=== PATIENT | female | born 2000 | race Caucasian/White ===

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

== ENCOUNTER 2021-05-06 05:52 | Emergency (ER) | payer OTHER ==
[2021-05-06 06:04] VITALS: BP 110/70; PULSE 80; TEMP 98.5; BMI 22.3
[2021-05-06] MEDS ORDERED: PROMETHAZINE HCL 25 MG/1 ML VIAL ONE (06:12)
[2021-05-06] MEDS ORDERED: SODIUM CHLORIDE 1,000 ML IV STA (06:12)
[2021-05-06] MEDS ORDERED: PROMETHAZINE HCL 25 MG/1 ML VIAL IVPB ONE (06:14)
== END 2021-05-06 08:40 | disposition home or self-care (01) ==
LOC: FER 05:52
PROC: 3E033NZ Introduction of Analgesics, Hypnotics, Sedatives into Peripheral Vein, Percutaneous Approach (ICD-10-PCS; principal; 2021-05-06)
PROC: 3E0337Z Introduction of Electrolytic and Water Balance Substance into Peripheral Vein, Percutaneous Approach (ICD-10-PCS; 2021-05-06)
DX: R11.10 Vomiting, unspecified (principal)
CPT/HCPCS: 99284-25

== ENCOUNTER 2021-07-03 21:16 | Emergency (ER) | payer OTHER ==
[2021-07-03] MEDS ORDERED: SODIUM CHLORIDE 1,000 ML IV STA (21:22)
[2021-07-03] MEDS ORDERED: PROMETHAZINE HCL 25 MG/1 ML VIAL IVPUSH ONE (21:23)
[2021-07-03 21:26] VITALS: BP 107/71; PULSE 90; TEMP 98.7; BMI 22.3
== END 2021-07-03 22:41 | disposition home or self-care (01) ==
LOC: FER 21:16
PROC: 3E033GC Introduction of Other Therapeutic Substance into Peripheral Vein, Percutaneous Approach (ICD-10-PCS; principal; 2021-07-03)
PROC: 3E0337Z Introduction of Electrolytic and Water Balance Substance into Peripheral Vein, Percutaneous Approach (ICD-10-PCS; 2021-07-03)
DX: K52.29 Other allergic and dietetic gastroenteritis and colitis (principal)
CPT/HCPCS: 99284-25

== ENCOUNTER 2021-09-01 07:09 | Emergency (ER) | payer OTHER ==
[2021-09-01 07:18] VITALS: BP 117/80; PULSE 97; TEMP 98.2; BMI 22.3
[2021-09-01] MEDS ORDERED: PROMETHAZINE HCL 50 MG/1 ML AMP IM ONE (07:34)
[2021-09-01] MEDS ORDERED: PROMETHAZINE HCL 25 MG/1 ML VIAL ONE (07:40)
== END 2021-09-01 08:14 | disposition home or self-care (01) ==
LOC: FER 07:09
PROC: 3E023GC Introduction of Other Therapeutic Substance into Muscle, Percutaneous Approach (ICD-10-PCS; principal; 2021-09-01)
DX: G43.A0 Cyclical vomiting, in migraine, not intractable (principal)
CPT/HCPCS: 99284-25

== ENCOUNTER 2021-11-20 17:35 | Emergency (ER) | payer OTHER ==
[2021-11-20 17:41] VITALS: BP 124/77; PULSE 94; TEMP 97.9; BMI 22.3
[2021-11-20] MEDS ORDERED: ONDANSETRON *ODT* 4 MG TABLET ONE (17:43)
[2021-11-20] MEDS ORDERED: PROMETHAZINE HCL 25 MG TABLET PO ONE (17:44)
[2021-11-20] MEDS: ONDANSETRON *ODT* 4 MG TABLET SL ONE ×2 (18:01→18:02)
[2021-11-20] MEDS ORDERED: ONDANSETRON *ODT* 4 MG TABLET SL ONE (18:51)
== END 2021-11-20 19:00 | disposition home or self-care (01) ==
LOC: FER 17:35
DX: R11.15 Cyclical vomiting syndrome unrelated to migraine (principal)
CPT/HCPCS: 99283-25; Q0162

== ENCOUNTER 2022-01-25 13:28 | Emergency (ER) | payer OTHER ==
[2022-01-25] MEDS ORDERED: SODIUM CHLORIDE 0.9% 500 ML INFUS.BAG IV ONE (13:47)
[2022-01-25 13:48] VITALS: BP 118/71; PULSE 80; TEMP 98; BMI 22.3
[2022-01-25 14:37] LABS: HCG,QUALITATIVE URINE Negative
[2022-01-25 14:46] LABS: EPITHELIAL CELLS RARE /hpf
[2022-01-25] MEDS ORDERED: ONDANSETRON *ODT* 4 MG TABLET SL ONE (15:28)
[2022-01-25] MEDS ORDERED: ONDANSETRON *ODT* 4 MG TABLET ONE (15:28)
== END 2022-01-25 15:55 | disposition home or self-care (01) ==
LOC: FER 13:28
DX: R11.2 Nausea with vomiting, unspecified (principal); F12.99 Cannabis use, unspecified with unspecified cannabis-induced disorder; R82.4 Acetonuria
CPT/HCPCS: 81003; 81015; 84703; 87077; 87086; 87186; 93005; 99284-25; Q0162

== ENCOUNTER 2022-03-23 20:53 | Emergency (ER) | payer OTHER ==
[2022-03-23 21:17] VITALS: BMI 22.3
[2022-03-23 21:43] VITALS: BP 109/69; PULSE 72; TEMP 98.5
[2022-03-24] MEDS ORDERED: ONDANSETRON *ODT* 4 MG TABLET SL ONE (00:40)
[2022-03-24] MEDS ORDERED: ONDANSETRON *ODT* 4 MG TABLET ONE (00:41)
== END 2022-03-24 01:01 | disposition home or self-care (01) ==
LOC: FER 20:53
DX: R11.2 Nausea with vomiting, unspecified (principal)
CPT/HCPCS: 99283-25; Q0162

== ENCOUNTER 2022-11-09 20:33 | Emergency (ER) | payer OTHER ==
[2022-11-09] MEDS ORDERED: FAMOTIDINE 20 MG/50 ML IVPB 20 MG in PREMIX 50 IVPB ONE (20:46)
[2022-11-09] MEDS ORDERED: SODIUM CHLORIDE 1,000 ML IV ONE (20:46)
[2022-11-09] MEDS ORDERED: METOCLOPRAMIDE HCL INJECTION 10 MG/2 ML VIAL IVPUSH ONE (20:46)
[2022-11-09 20:55] VITALS: RESP 18; TEMP 98; BMI 20.5
[2022-11-09] MEDS ORDERED: FAMOTIDINE 20 MG/50 ML IVPB 20 MG/50 ML MG IVPB ONE (21:01)
[2022-11-09] MEDS ORDERED: METOCLOPRAMIDE HCL INJECTION 10 MG/2 ML VIAL ONE (21:01)
[2022-11-09] MEDS ORDERED: PROMETHAZINE HCL 25 MG/1 ML VIAL IVPB ONE (21:26)
[2022-11-09] MEDS ORDERED: PROMETHAZINE HCL 25 MG/1 ML VIAL ONE (21:37)
[2022-11-09 22:02] LABS: HEMATOCRIT 36.9 % (32.4-45.2); HEMOGLOBIN 13.1 G/dL (10.7-15.3); MCH 31.8 pg (25.7-33.7); MCHC 35.4 g/dl (32.0-36.0); MEAN CELL VOLUME 89.7 fl (80-96); MEAN PLT VOLUME 8.6 fl (7.5-11.1); PLATELET COUNT 232.9 10^3/uL (134-434); RBC 4.11 10^6/uL (3.60-5.2); RDW 13.1 % (11.6-15.6); WHITE BLOOD COUNT 15.6 10^3/uL (4.0-10.8)
[2022-11-09 22:22] LABS: ALBUMIN 4.7 g/dl (3.4-5.0); BILIRUBIN,TOTAL 0.6 mg/dl (0.2-1); CALCIUM 9.5 mg/dl (8.5-10); CREATININE 0.8 mg/dl (0.55-1.3); TOT PROT 7.5 g/dl (6.4-8.2)
[2022-11-09 22:32] LABS: PLATELET ESTIMATE ADEQUATE
[2022-11-09 23:15] LABS: EPITHELIAL CELLS MODERATE /hpf
[2022-11-10 00:05] VITALS: BP 103/68; PULSE 87
== END 2022-11-10 00:04 | disposition home or self-care (01) ==
LOC: FER 20:33
PROC: 3E033GC Introduction of Other Therapeutic Substance into Peripheral Vein, Percutaneous Approach (ICD-10-PCS; principal; 2022-11-09)
DX: R11.2 Nausea with vomiting, unspecified (principal)
CPT/HCPCS: 36415; 80053; 81003; 81015; 84703; 85027; 99284-25

== ENCOUNTER 2022-11-28 23:52 | Emergency (ER) | payer OTHER ==
[2022-11-28] MEDS ORDERED: PROMETHAZINE HCL 25 MG/1 ML VIAL IVPB STA (23:56)
[2022-11-29] MEDS ORDERED: PROMETHAZINE HCL 25 MG/1 ML VIAL IVPB STA (00:02)
[2022-11-29] MEDS ORDERED: SODIUM CHLORIDE 1,000 ML IV ONE ×2 (00:03)
[2022-11-29 00:07] VITALS: BP 107/71; PULSE 82; RESP 16; TEMP 98.5; BMI 21.4
[2022-11-29] MEDS ORDERED: PROMETHAZINE HCL 25 MG/1 ML VIAL ONE (00:08)
== END 2022-11-29 00:54 | disposition home or self-care (01) ==
LOC: FER 23:52
PROC: 3E033GC Introduction of Other Therapeutic Substance into Peripheral Vein, Percutaneous Approach (ICD-10-PCS; principal; 2022-11-28)
DX: R11.15 Cyclical vomiting syndrome unrelated to migraine (principal)
CPT/HCPCS: 99284-25

== ENCOUNTER 2023-03-09 17:45 | Emergency (ER) | payer OTHER ==
[2023-03-09] MEDS ORDERED: PROMETHAZINE HCL 50 MG/1 ML AMP IM ONE (18:13)
[2023-03-09 18:18] VITALS: BP 116/74; PULSE 87; RESP 18; TEMP 97.5; BMI 24.0
[2023-03-09] MEDS ORDERED: SODIUM CHLORIDE 1,000 ML IV STA (18:18)
[2023-03-09] MEDS ORDERED: PROMETHAZINE HCL 25 MG/1 ML VIAL ONE (18:23)
[2023-03-09] MEDS ORDERED: FAMOTIDINE 20 MG/50 ML IVPB 20 MG/50 ML MG IVPB ONE ×2 (18:29→18:33)
== END 2023-03-09 21:51 | disposition home or self-care (01) ==
LOC: FER 17:45
PROC: 3E033GC Introduction of Other Therapeutic Substance into Peripheral Vein, Percutaneous Approach (ICD-10-PCS; principal; 2023-03-09)
PROC: 3E023GC Introduction of Other Therapeutic Substance into Muscle, Percutaneous Approach (ICD-10-PCS; 2023-03-09)
PROC: 3E0337Z Introduction of Electrolytic and Water Balance Substance into Peripheral Vein, Percutaneous Approach (ICD-10-PCS; 2023-03-09)
DX: R11.2 Nausea with vomiting, unspecified (principal); F12.90 Cannabis use, unspecified, uncomplicated
CPT/HCPCS: 99284-25

== ENCOUNTER 2023-05-14 19:07 | Emergency (ER) | payer OTHER ==
[2023-05-14 19:19] VITALS: BP 102/73; PULSE 83; RESP 16; TEMP 97.6; BMI 25.7
[2023-05-14] MEDS ORDERED: PROMETHAZINE HCL 25 MG TABLET PO ONE (19:40)
[2023-05-14] MEDS ORDERED: ACETAMINOPHEN 325 MG TABLET (FP) PO ONE (19:40)
[2023-05-14] MEDS ORDERED: ACETAMINOPHEN 325 MG TABLET (FP) ONE (19:43)
[2023-05-14] MEDS ORDERED: PROMETHAZINE HCL 50 MG/1 ML AMP IM ONE ×2 (19:48→19:53)
[2023-05-14] MEDS ORDERED: PROMETHAZINE HCL 25 MG/1 ML VIAL ONE (19:49)
== END 2023-05-14 20:15 | disposition home or self-care (01) ==
LOC: FER 19:07
PROC: 3E023GC Introduction of Other Therapeutic Substance into Muscle, Percutaneous Approach (ICD-10-PCS; principal; 2023-05-14)
DX: G40.909 Epilepsy, unspecified, not intractable, without status epilepticus (principal); R11.2 Nausea with vomiting, unspecified
CPT/HCPCS: 99284-25

== ENCOUNTER 2023-09-10 20:23 | Emergency (ER) | payer OTHER ==
[2023-09-10] MEDS ORDERED: PROMETHAZINE HCL 25 MG/1 ML VIAL IVPB STA (20:27)
[2023-09-10] MEDS ORDERED: SODIUM CHLORIDE 1,000 ML IV ONE (20:27)
[2023-09-10] MEDS ORDERED: KETOROLAC TROMETHAMINE 30 MG/1 ML VIAL IVPUSH ONE (20:27)
[2023-09-10] MEDS ORDERED: ACETAMINOPHEN 1000 MG/100 ML BAG IVPB ONE (20:32)
[2023-09-10 20:38] VITALS: BP 126/83; PULSE 84; RESP 18; TEMP 98.8; BMI 25.7
[2023-09-10] MEDS ORDERED: KETOROLAC TROMETHAMINE 30 MG/1 ML VIAL ONE (20:45)
[2023-09-10] MEDS ORDERED: PROMETHAZINE HCL 25 MG/1 ML VIAL ONE (20:45)
[2023-09-10] MEDS ORDERED: ACETAMINOPHEN INJECTION 100 ML IVPB ONE (20:45)
== END 2023-09-10 22:15 | disposition home or self-care (01) ==
LOC: FER 20:23
PROC: 3E033NZ Introduction of Analgesics, Hypnotics, Sedatives into Peripheral Vein, Percutaneous Approach (ICD-10-PCS; principal; 2023-09-10)
PROC: 3E0333Z Introduction of Anti-inflammatory into Peripheral Vein, Percutaneous Approach (ICD-10-PCS; 2023-09-10)
PROC: 3E033GC Introduction of Other Therapeutic Substance into Peripheral Vein, Percutaneous Approach (ICD-10-PCS; 2023-09-10)
PROC: 3E0337Z Introduction of Electrolytic and Water Balance Substance into Peripheral Vein, Percutaneous Approach (ICD-10-PCS; 2023-09-10)
DX: R11.2 Nausea with vomiting, unspecified (principal); G43.901 Migraine, unspecified, not intractable, with status migrainosus; R51.9 Headache, unspecified
CPT/HCPCS: 99284-25

== ENCOUNTER 2023-10-27 18:55 | Emergency (ER) | payer OTHER ==
[2023-10-27 19:11] VITALS: BP 117/71; PULSE 94; RESP 19; TEMP 97.7; BMI 27.4
[2023-10-27] MEDS ORDERED: PROMETHAZINE HCL 25 MG/1 ML VIAL IVPB ONE (19:25)
[2023-10-27] MEDS ORDERED: SODIUM CHLORIDE 1,000 ML IV STA (19:26)
[2023-10-27] MEDS ORDERED: PROMETHAZINE HCL 25 MG/1 ML VIAL ONE (19:27)
[2023-10-27 19:34] LABS: HEMATOCRIT 36.3 % (32.4-45.2); HEMOGLOBIN 12.4 G/dL (10.7-15.3); MCH 30.2 pg (25.7-33.7); MEAN CELL VOLUME 88.8 fl (80-96); MEAN PLT VOLUME 8.1 fl (7.5-11.1); PLATELET COUNT 281.3 10^3/uL (134-434); RBC 4.09 10^6/uL (3.60-5.2); RDW 14.3 % (11.6-15.6); WHITE BLOOD COUNT 11.4 10^3/uL (4.0-10.8)
[2023-10-27 19:45] LABS: PLATELET ESTIMATE ADEQUATE
[2023-10-27 19:50] LABS: ALBUMIN 4.7 g/dl (3.4-5.0); BILIRUBIN,TOTAL 0.3 mg/dl (0.2-1); CALCIUM 9.7 mg/dl (8.5-10.1); CREATININE 0.9 mg/dl (0.6-1.3); POTASSIUM 3.4 mmol/L (3.5-5.1); TOT PROT 7.1 g/dl (6.4-8.2)
== END 2023-10-27 22:11 | disposition home or self-care (01) ==
LOC: FER 18:55
PROC: 3E033GC Introduction of Other Therapeutic Substance into Peripheral Vein, Percutaneous Approach (ICD-10-PCS; principal; 2023-10-27)
PROC: 3E0337Z Introduction of Electrolytic and Water Balance Substance into Peripheral Vein, Percutaneous Approach (ICD-10-PCS; 2023-10-27)
DX: G43.909 Migraine, unspecified, not intractable, without status migrainosus (principal); R11.2 Nausea with vomiting, unspecified
CPT/HCPCS: 36415; 80053; 85027; 99284-25

== ENCOUNTER 2023-11-15 14:00 | Emergency (ER) | payer OTHER ==
[2023-11-15 15:01] VITALS: BP 122/79; PULSE 93; RESP 18; TEMP 99.1; BMI 27.4
[2023-11-15] MEDS ORDERED: LIDOCAINE 5% TOPICAL PATCH ONE (15:06)
[2023-11-15] MEDS: LIDOCAINE 5% TOPICAL PATCH TP ONE (15:09)
== END 2023-11-15 15:30 | disposition home or self-care (01) ==
LOC: FER 14:00
DX: M54.50 Low back pain, unspecified (principal); G89.29 Other chronic pain; M41.9 Scoliosis, unspecified
CPT/HCPCS: 72100-TC-FY; 84703; 99283-25

== ENCOUNTER 2023-12-13 15:32 | Emergency (ER) | payer OTHER ==
[2023-12-13 15:43] VITALS: BP 136/80; PULSE 94; RESP 20; TEMP 99.1; BMI 27.4
[2023-12-13 16:26] LABS: HEMATOCRIT 38.8 % (32.4-45.2); HEMOGLOBIN 12.9 G/dL (10.7-15.3); MCH 29.8 pg (25.7-33.7); MCHC 33.3 g/dl (32.0-36.0); MEAN CELL VOLUME 89.7 fl (80-96); MEAN PLT VOLUME 8.4 fl (7.5-11.1); PLATELET COUNT 224.7 10^3/uL (134-434); RBC 4.33 10^6/uL (3.60-5.2); RDW 13.7 % (11.6-15.6); WHITE BLOOD COUNT 10.1 10^3/uL (4.0-10.8)
[2023-12-13 16:39] LABS: PLATELET ESTIMATE ADEQUATE
[2023-12-13 16:40] LABS: HCG,QUALITATIVE URINE Negative
[2023-12-13 16:48] LABS: ALBUMIN 5.2 g/dl (3.4-5.0); ALK PHOS 52 U/L (45-117); ANION GAP 10 mmol/L (4-13); BILIRUBIN,TOTAL 0.5 mg/dl (0.2-1); CHLORIDE 106 mmol/L (98-107); CO2 20 mmol/L (21-32); CREATININE 0.9 mg/dl (0.6-1.3); GLUCOSE,RANDOM 98 mg/dl (74-106); POTASSIUM 3.7 mmol/L (3.5-5.1); SGOT/AST 29 U/L (15-37); SGPT/ALT 19 U/L (7-52); SODIUM 136 mmol/L (136-145); TOT PROT 7.6 g/dl (6.4-8.2)
[2023-12-13 16:50] LABS: AMORP URATES MODERATE /hpf (NONE SEEN)
[2023-12-13] MEDS ORDERED: PROCHLORPERAZINE MALEATE 5 MG TABLET PO ONE (17:23)
[2023-12-13] MEDS ORDERED: IBUPROFEN 400 MG TABLET (FP) PO ONE ×2 (17:24→17:35)
[2023-12-13] MEDS ORDERED: PROCHLORPERAZINE MALEATE 5 MG TABLET ONE (17:36)
== END 2023-12-13 17:41 | disposition home or self-care (01) ==
LOC: FER 15:32
DX: R11.2 Nausea with vomiting, unspecified (principal); R19.7 Diarrhea, unspecified; R10.9 Unspecified abdominal pain; Z20.822 Contact with and (suspected) exposure to COVID-19
CPT/HCPCS: 0241U-QW; 36415; 76817-TC; 80053; 81003; 81015; 84702; 84703; 85027; 86850; 86900; 86901; 87086; 99284-25

== ENCOUNTER 2024-03-27 19:21 | Emergency (ER) | payer BC, OTHER ==
[2024-03-27] MEDS ORDERED: KETOROLAC TROMETHAMINE 30 MG/1 ML VIAL ONE (19:30)
[2024-03-27] MEDS ORDERED: PROCHLORPERAZINE INJECTION 10 MG/2 ML VIAL ONE (19:31)
[2024-03-27] MEDS: SODIUM CHLORIDE 1,000 ML IV ONE (19:40)
[2024-03-27] MEDS: PROCHLORPERAZINE INJECTION 10 MG/2 ML VIAL IVPB ONE (19:40)
[2024-03-27] MEDS: KETOROLAC TROMETHAMINE 30 MG/1 ML VIAL IVPUSH ONE (19:40)
[2024-03-27 19:41] VITALS: BP 116/80; PULSE 87; RESP 18; BMI 27.6
[2024-03-27] MEDS ORDERED: ACETAMINOPHEN INJECTION 100 ML IVPB ONE (20:15)
[2024-03-27] MEDS: ACETAMINOPHEN 1000 MG/100 ML BAG IVPB ONE (20:37)
[2024-03-27] MEDS ORDERED: METOCLOPRAMIDE HCL INJECTION 10 MG/2 ML VIAL ONE (20:38)
[2024-03-27] MEDS: METOCLOPRAMIDE HCL INJECTION 10 MG/2 ML VIAL IVPB ONE (20:46)
== END 2024-03-27 20:57 | disposition home or self-care (01) ==
LOC: FER 19:21
PROC: 3E033NZ Introduction of Analgesics, Hypnotics, Sedatives into Peripheral Vein, Percutaneous Approach (ICD-10-PCS; principal; 2024-03-27)
PROC: 3E0333Z Introduction of Anti-inflammatory into Peripheral Vein, Percutaneous Approach (ICD-10-PCS; 2024-03-27)
PROC: 3E033GC Introduction of Other Therapeutic Substance into Peripheral Vein, Percutaneous Approach (ICD-10-PCS; 2024-03-27)
PROC: 3E0337Z Introduction of Electrolytic and Water Balance Substance into Peripheral Vein, Percutaneous Approach (ICD-10-PCS; 2024-03-27)
DX: G43.909 Migraine, unspecified, not intractable, without status migrainosus (principal); R11.2 Nausea with vomiting, unspecified; Z20.822 Contact with and (suspected) exposure to COVID-19
CPT/HCPCS: 0241U-QW; 99284-25; J0131

== ENCOUNTER 2024-05-23 22:40 | Emergency (ER) | payer OTHER ==
[2024-05-23 22:54] VITALS: BP 116/77; PULSE 84; RESP 16; TEMP 97.7; BMI 27.6
[2024-05-23] MEDS ORDERED: CYCLOBENZAPRINE HCL 5 MG TABLET ONE (23:08)
[2024-05-23] MEDS: CYCLOBENZAPRINE HCL 10 MG TABLET (FP) PO ONE (23:09)
== END 2024-05-23 23:16 | disposition home or self-care (01) ==
LOC: FER 22:40
DX: M54.41 Lumbago with sciatica, right side (principal)
CPT/HCPCS: 99283-25

== ENCOUNTER 2024-06-03 22:44 | Emergency (ER) | payer OTHER ==
[2024-06-03] MEDS ORDERED: KETOROLAC TROMETHAMINE 30 MG/1 ML VIAL IVPUSH ONE (22:48)
[2024-06-03] MEDS ORDERED: SODIUM CHLORIDE 1,000 ML IV ONE (22:48)
[2024-06-03] MEDS ORDERED: METOCLOPRAMIDE HCL INJECTION 10 MG/2 ML VIAL IVPB ONE (22:49)
[2024-06-03 23:01] VITALS: BP 119/72; PULSE 89; RESP 18; TEMP 98.1; BMI 24.0
[2024-06-03] MEDS ORDERED: PROMETHAZINE HCL 25 MG/1 ML VIAL IVPB STA (23:02)
[2024-06-03] MEDS ORDERED: KETOROLAC TROMETHAMINE 30 MG/1 ML VIAL ONE (23:03)
[2024-06-03] MEDS ORDERED: PROMETHAZINE HCL 25 MG/1 ML VIAL ONE (23:25)
[2024-06-03] MEDS: KETOROLAC TROMETHAMINE 30 MG/1 ML VIAL IM ONE (23:26)
[2024-06-03] MEDS: PROMETHAZINE HCL 25 MG/1 ML VIAL IM ONE (23:27)
== END 2024-06-03 23:51 | disposition home or self-care (01) ==
LOC: FER 22:44
PROC: 3E0133Z Introduction of Anti-inflammatory into Subcutaneous Tissue, Percutaneous Approach (ICD-10-PCS; principal; 2024-06-03)
PROC: 3E02305 Introduction of Other Antineoplastic into Muscle, Percutaneous Approach (ICD-10-PCS; 2024-06-03)
DX: G43.909 Migraine, unspecified, not intractable, without status migrainosus (principal); R11.10 Vomiting, unspecified
CPT/HCPCS: 99284-25

== ENCOUNTER 2024-06-11 11:27 | Emergency (ER) | payer OTHER | END 2024-06-11 13:36 | disposition left against medical advice (07) | LOC: FER 11:27 | DX: Z53.21 Procedure and treatment not carried out due to patient leaving prior to being seen by health care provider (principal) | CPT/HCPCS: 99281-25 ==

== ENCOUNTER 2024-07-26 21:30 | Emergency (ER) | payer OTHER ==
[2024-07-26 21:44] VITALS: RESP 16; BMI 24.0
[2024-07-26 21:54] VITALS: BP 113/77; PULSE 84; TEMP 99.3
== END 2024-07-26 21:56 | disposition home or self-care (01) ==
LOC: FER 21:30
DX: F41.9 Anxiety disorder, unspecified (principal); F43.9 Reaction to severe stress, unspecified
CPT/HCPCS: 99283-25

== ENCOUNTER 2024-08-03 08:40 | Emergency (ER) | payer OTHER ==
[2024-08-03 08:46] VITALS: BP 109/75; PULSE 87; RESP 18; TEMP 98.2; BMI 22.3
[2024-08-03] MEDS ORDERED: PROMETHAZINE HCL 25 MG/1 ML VIAL ONE (09:07)
[2024-08-03] MEDS: PROMETHAZINE HCL 50 MG/1 ML AMP IM ONE (09:12)
== END 2024-08-03 09:32 | disposition home or self-care (01) ==
LOC: FER 08:40
PROC: 3E023GC Introduction of Other Therapeutic Substance into Muscle, Percutaneous Approach (ICD-10-PCS; principal; 2024-08-03)
DX: R11.15 Cyclical vomiting syndrome unrelated to migraine (principal); R10.84 Generalized abdominal pain
CPT/HCPCS: 99284-25

== ENCOUNTER 2024-10-06 00:43 | Emergency (ER) | payer OTHER ==
[2024-10-06] MEDS ORDERED: diphenhydrAMINE HCL 25 MG CAPSULE (FP) PO ONE (00:53)
[2024-10-06] MEDS ORDERED: predniSONE 20 MG TABLET (UD) ONE (00:53)
[2024-10-06] MEDS: predniSONE 20 MG TABLET (UD) PO ONE (01:08)
[2024-10-06] MEDS: diphenhydrAMINE HCL 50 MG CAPSULE PO ONE (01:08)
[2024-10-06 01:27] VITALS: BP 128/70; PULSE 80; RESP 17; TEMP 98.1; BMI 22.3
== END 2024-10-06 01:41 | disposition home or self-care (01) ==
LOC: FER 00:43
DX: T78.40XA Allergy, unspecified, initial encounter (principal)
CPT/HCPCS: 99283-25